=== PATIENT | male | born 1980 | race Two or more races ===

== ENCOUNTER 2016-09-01 13:57 | Emergency (ER) | payer OTHER ==
[~2016-09-01] VITALS: Ht 177.8 cm; Wt 86.2 kg
[2016-09-01 14:40] LABS: Basophils % (auto) 0.8 % (0.0-2.0); Hematocrit 36.9 % (41.0-53.0); Hemoglobin 12.4 g/dL (13.5-17.5); Lymphocytes # (auto) 1.4 uL; Lymphocytes % (auto) 23.1 % (10.0-50.0); Mean Corpuscular Hemoglobin 29.6 pg (28.0-32.0); Mean Corpuscular Hgb Conc. 33.5 g/dL (32.0-36.0); Mean Corpuscular Volume 88.2 fL (80.0-100.0); Monocytes # (auto) 0.4 uL; Monocytes % (auto) 6.1 % (0.0-12.0); Neutrophils # (auto) 4.1 uL; Neutrophils % (auto) 67.8 % (37.0-80.0); Platelet Count (auto) 283 10^3/uL (140-450); Red Cell Distribution Width 12.5 % (11.6-16.0)
[2016-09-01 15:01] LABS: Albumin 3.9 g/dL (3.4-5.0); BUN/Creatinine Ratio 17.5; Calcium 8.8 mg/dL (8.5-10.1); Potassium 4.1 mmol/L (3.5-5.1)
[2016-09-01 15:05] LABS: Bilirubin, Total 0.3 mg/dL (0.2-1.0); Total Protein 7.6 g/dL (6.4-8.2)
[2016-09-01 15:45] LABS: Urine Bilirubin Negative (Negative); Urine Blood Negative /uL (Negative); Urine Color Yellow (Yellow); Urine Glucose Normal (Normal); Urine Ketone Negative (Negative); Urine Nitrite Negative (Negative); Urine RBC <1 /hpf (0 - 3); Urine Urobilinogen Normal (Negative); Urine pH 6.5 (5.0-8.0)
[2016-09-01] MEDS ORDERED: ACETAMINOPHEN 325 MG TAB PO ONE (17:15)
[2016-09-01 17:47] VITALS: BP 137/88
== END 2016-09-01 18:06 | disposition home or self-care (01) ==
LOC: ER 14:05
DX: G93.41 Metabolic encephalopathy (principal); E10.649 Type 1 diabetes mellitus with hypoglycemia without coma; D64.9 Anemia, unspecified; I10 Essential (primary) hypertension; F12.10 Cannabis abuse, uncomplicated; Z79.4 Long term (current) use of insulin
CPT/HCPCS: 36415; 80053; 81001; 82962; 85025; 85049; 93005